=== PATIENT | male | born 2000 | race Caucasian/White ===

== ENCOUNTER 2021-09-28 18:03 | Emergency (ER) | payer OTHER, SELFPAY ==
[2021-09-28 18:23] VITALS: BP 161/79; PULSE 91; RESP 20; TEMP 36.4; O2SAT 100
--- NOTE | 2021-09-28 18:23 | ED.URI ---
HPI - URI/Sore Throat General Chief Complaint: Upper Respiratory Infection Stated Complaint: uri Time Seen by Provider: 09/28/21 18:24 Source: patient and RN notes reviewed Mode of arrival: ambulatory Limitations: no limitations History of Present Illness HPI Narrative: 21-year-old male presents to the [facility] with complaints of upper respiratory symptoms for 2 days. Has taken Tylenol Denies fevers. No chest pain or abdominal pain. Related Data Home Medications Medication Instructions Recorded Confirmed No Home Medications 09/28/21 09/28/21 Allergies Allergy/AdvReac Type Severity Reaction Status Date / Time No Known Allergies Allergy Mild Unverified 11/05/09 22:21 Review of Systems Review of Systems: All systems reviewed & are unremarkable except as noted in HPI and below Constitutional: Constitutional: Reports no additional constitutional complaints, Denies chills and Denies fever(s) Eyes: Eyes: Reports no additional eye complaints ENT: Reports as per HPI and Reports nasal congestion Cardiovascular: Cardiovascular: Reports no additional cardiovascular complaints Respiratory: Respiratory: Reports as per HPI, Reports chest congestion, Reports cough, Denies dyspnea and Denies wheezing Gastrointestinal: Gastrointestinal: Reports no additional gastrointestinal complaints Musculoskeletal: Musculoskeletal: Reports no additional musculoskeletal complaints Integumentary/Breasts: Skin/Breast: Reports system reviewed and no additional complaints, except as docu Neurologic: Reports system reviewed and no additional complaints, except as documented Psychiatric: Psychiatric: Reports no additional psychiatric complaints Allergic/Immunologic: Allergic/Immunologic: Reports no additional allergic/immunologic complaints [facility] Past Medical History Medical History No significant medical problems Surgical History Surgical History (Updated 09/28/21 @ 20:51 by Jessica Miramontes APRN) No history of previous surgery Comments At the time of my signature, I reviewed and agree with the nursing past medical, surgical, social, and family history. There is no relevant family history pertinent to the patient complaint. Exam Const: General: healthy appearing, no acute distress and alert Nutritional Appearance: well nourished Orientation/consciousness: patient oriented x3 Limitations: no limitations HENMT: Head: normal to inspection Ears: external ears normal Eyes: General: appearance normal, both eyes and all related structures Pupils: Equal, round and reactive pupils present Neck: Neck: normal visual inspection, no lymphadenopathy and no meningeal signs Chest: Chest palpation & inspection: normal inspection of the chest Resp: Effort & Inspection: normal respiratory effort and no use of accessory muscles Auscultation: clear to auscultation bilaterally, no crackles, no rales, no rhonchi and no wheezes Cardio: Rate: regular rate Rhythm: regular rhythm Back/Spine/Pelvis: Cervical Spine: normal cervical lordosis Thoracic/Lumbar Spine: thoracic and lumbar spine normal to inspection Skin: General skin exam: normal color Rashes: no rashes Wounds: no wounds Neuro: General: patient oriented x3, moves all extremities, no meningeal signs and no focal motor deficits Cranial nerves: Yes Equal, round and reactive pupils present Speech: normal speech Gait exam (Neuro): Normal gait present Extrem: General: normal to inspection, full ROM and capillary refill normal Psych: Appearance: grossly normal and well kempt Mental Status: mental status grossly normal Affect: normal affect Attitude: cooperative Thought content: Yes Normal thought content present Course Course Emergency Course: Discharge instructions reviewed with patient, as well as provided in writing per nursing staff. The instructions also include specific and strict return/GO TO THE ER as well as
[2021-09-28 21:03] LABS: SARS-CoV-2 RNA PCR Negative
== END 2021-09-28 18:47 | disposition home or self-care (01) ==
PROVIDERS: Emergency Provider Nurse Practitioner
DX: J06.9 Acute upper respiratory infection, unspecified (principal); Z20.822 Contact with and (suspected) exposure to COVID-19
CPT/HCPCS: 87426; 87804; 99213; C9803; G0463; U0003; U0005

== ENCOUNTER 2022-11-07 16:36 | Emergency (ER) | payer OTHER, SELFPAY ==
--- NOTE | ~2022-11-07 | XR_ITS ---
EXAMINATION: XR foot LT 2V DATE: 11/07/2022 19:28 INDICATION: Assess for foreign body TECHNIQUE: Dorsoplantar and lateral views of the left foot were obtained. COMPARISON: None. FINDINGS: Alignment is normal. No fracture. Joint spaces are normal. Soft tissue swelling at the lateral aspect of the forefoot. No evident radiopaque foreign bodies. IMPRESSION: 1. No osseous abnormality or radiopaque foreign body. Reviewed, dictated and finalized at location A.
[2022-11-07 17:17] VITALS: BP 165/90; PULSE 91; RESP 16; TEMP 36.2; O2SAT 99
--- NOTE | 2022-11-07 19:16 | ED.GENADULT ---
HPI - General Adult General Chief complaint: Wound/Laceration <Ulices Gan PA-C - Last Filed: 11/08/22 03:13> Stated complaint: foot laceration <Ulices Gan PA-C - Last Filed: 11/08/22 03:13> Time Seen by Provider: 11/07/22 18:07 <Ulices Gan PA-C - Last Filed: 11/08/22 03:13> Source: patient <GARDENIA Rodriguez Last Filed: 11/08/22 03:13> Mode of arrival: ambulatory <GARDENIA Rodriguez Last Filed: 11/08/22 03:13> Limitations: no limitations <GARDENIA Rodriguez Last Filed: 11/08/22 03:13> History of Present Illness HPI narrative: This is a 22-year-old male who presents to the ED with chief complaint of left foot injury occurring about 2 hours prior to arrival. Patient states that he was chasing after his dog who got outside and accidentally stepped on a broken beer bottle. He states he was barefoot because he rushed outside to get the dog. He reports a lot of bleeding at the time but it is controlled now. Denies any further site of pain or laceration. Denies any further complaint. <Ulices Gan PA-C - Last Filed: 11/08/22 03:13> Related Data Home medications: Home Medications Medication Instructions Recorded Confirmed No Home Medications 09/28/21 09/28/21 <Ulices Gan PA-C - Last Filed: 11/08/22 03:13> Allergies/adverse reactions: Allergies Allergy/AdvReac Type Severity Reaction Status Date / Time No Known Allergies Allergy Mild Verified 11/07/22 18:10 <GARDENIA Rodriguez Last Filed: 11/08/22 03:13> Review of Systems Review of Systems: All systems as dictated in HPI <GARDENIA Rodriguez Last Filed: 11/08/22 03:13> [facility] Past Medical History Medical History: Medical History No significant medical problems <Ulices Gan PA-C - Last Filed: 11/08/22 03:13> Surgical History Surgical History: Surgical History (Updated 09/28/21 @ 20:51 by Jessica Miramontes APRN) No history of previous surgery <Ulices Gan PA-C - Last Filed: 11/08/22 03:13> Exam Narrative: GENERAL: Well-appearing, well-nourished, and in no acute distress. HEAD: Normocephalic, atraumatic. EYES: PERRLA and EOMI. ENT: Nares clear, no rhinorrhea or epistaxis. Mucous membranes moist. Oropharynx without tonsillar hypertrophy exudate or other lesions. NECK: Supple. No adenopathy or masses. CHEST: No respiratory distress. Clear to auscultation. No wheezes rales or rhonchi HEART: Regular rate and rhythm. No murmur heard. Normal peripheral pulses. ABDOMEN: Soft, nontender, nondistended, normal active bowel sounds. MSK: Normal range of motion. No edema. SKIN: There is a 1 cm simple laceration to the plantar aspect of the mid left foot. No active bleeding. NEURO: Alert and oriented x3. No focal deficits. PSYCH: Normal mood and affect. <Ulices Gan PA-C - Last Filed: 11/08/22 03:13> Course WHEEL [employer]FFER/PA Physician Supervision This is a was performed by both a physician and an APC. I performed all aspects of the MDM as documented w/ the following additions: 22-year-old male presenting after stepping on a piece of glass. No laceration repair required. No foreign bodies noted. Patient discharged with return precautions.All questions answered. Patient in agreement w/ disposition. <Tod Martinez MD - Last Filed: 11/10/22 03:44> Vital Signs Vital signs: Vital Signs Temperature 97.1 F L 11/07/22 17:17 Pulse Rate 91 11/07/22 17:17 Respiratory Rate 16 11/07/22 17:17 Blood Pressure 165/90 H 11/07/22 17:17 Pulse Oximetry 99 11/07/22 17:17 Oxygen Delivery Room Air 11/07/22 17:17 Temperature 97.1 F L 11/07/22 17:17 Pulse Rate 91 11/07/22 17:17 Respiratory Rate 16 11/07/22 17:17 Blood Pressure 165/90 H 11/07/22 17:17 Pulse Oximetry 99 11/07/22 17:17 Oxygen Delivery Room Air 11/07/22 17:17 <Ulices Gan PA-C - Last Filed: 10/19
== END 2022-11-07 20:22 | disposition home or self-care (01) ==
PROVIDERS: Emergency Provider Physician Assistant
DX: S91.312A Laceration without foreign body, left foot, initial encounter (principal); W25.XXXA Contact with sharp glass, initial encounter
CPT/HCPCS: 73620; 99283

== ENCOUNTER 2023-07-18 11:46 | Emergency (ER) | payer OTHER, SELFPAY ==
--- NOTE | 2023-07-18 11:49 | ED.SKABFB ---
HPI - Skin/Abscess/Foreign Bdy General Chief complaint: Skin/Abscess/Foreign Body Stated complaint: Insect Bite Time Seen by Provider: 07/18/23 12:14 Source: patient and RN notes reviewed Mode of arrival: ambulatory Limitations: no limitations History of Present Illness HPI narrative: 22-year-old male presents with concern for tick bite to his left thigh. Reports he pulled the tick off of his thigh on Monday, last night he noticed it was red around the bite site. Denies headache, general malaise, fever, body aches, chills, sweats. Denies any other rash. MD complaint: insect bite/sting Related Data Allergies Allergy/AdvReac Type Severity Reaction Status Date / Time No Known Allergies Allergy Mild Verified 07/18/23 11:53 Review of Systems Review of Systems: CONSTITUTIONAL: Denies malaise, chills, sweats, or fever. EYES: Denies redness, or discharge. ENT: Denies rhinorrhea, congestion, swollen lips, swollen tongue CARDIOVASCULAR: Denies chest pain, palpitations, or edema. RESPIRATORY: Denies cough or dyspnea. GASTROINTESTINAL: Denies abdominal pain, nausea, vomiting SKIN: Reports redness around the tick bite site on the left thigh MUSCULOSKELETAL: Denies joint pain or myalgia. NEUROLOGIC: Denies headache. All systems reviewed & are unremarkable except as noted in HPI and below PMFSH Past Medical History Medical History No significant medical problems Surgical History Surgical History (Updated 09/28/21 @ 20:51 by Jessica Miramontes APRN) No history of previous surgery Comments At time of signature, agree with nursing past medical, surgical, social and family history. There is no relevant family history pertinent to the presenting complaint Exam Narrative: GENERAL: Well-appearing, well-nourished, and in no acute distress. HEAD: Normocephalic, atraumatic. EYES: PERRLA, conjunctivae clear, and EOMI. ENT: Mucous membranes moist. Oropharynx without edema, erythema or lesions. NECK: Supple. No lymphadenopathy CHEST: Clear to auscultation. No respiratory distress. HEART: Regular rate and rhythm. SKIN: Warm, dry. Approximately a 7 cm area of erythema surrounding central scabbed bite site on the right upper thigh. No other rash noted NEURO: Alert and oriented x3. PSYCH: Normal mood and affect Course Course Emergency Course: Patient is aware of diagnosis, understands and agrees to treatment plan. Anticipatory guidance given. Patient agrees to follow-up as directed and is aware of reasons to seek care at the emergency department. Portions of this record may have been created with voice recognition software Level of Care: Express Care Visit Vital Signs Vital signs: Reviewed. MDM - Skin/Abscess/Foreign Bdy MDM Narrative Medical decision making narrative: Does not appear at this time to be erythema multiforme, bullous, SJS, TEN; no evidence at this time to suggest RMSF, endocarditis or Lyme disease; patient looks well, nontoxic and is tolerating oral intake; no neurologic signs or symptoms; no headache, photophobia or neck pain; afebrile; appropriate for initial outpatient treatment; discussed the importance of follow-up, patient agrees; question, viral exanthema, contact dermatitis, allergic dermatitis, eczema, urticaria, erythema migrans, cellulitis. No soft palate or uvula edema, no tongue, lip edema or other mucosal involvement, no respiratory compromise, no stridor, no wheezing, no wheezing, no history of syncope, no hypotension, no nausea, vomiting, or diarrhea. Instructed patient to go to nearest ER immediately for any worsening symptoms including but not limited to: fever, spreading rash, pain, sore throat, headache, dizziness, chest pain, trouble breathing, or any symptoms concerning to the patient. Critical Care Time Critical Care Time Critical Care Time: No Discharge Plan Discharge Clinical Impression: Tick bite Patient Disposition: H
[2023-07-18 11:56] VITALS: BP 163/87; PULSE 75; RESP 16; TEMP 36.3; O2SAT 99
== END 2023-07-18 12:27 | disposition home or self-care (01) ==
PROVIDERS: Emergency Provider Nurse Practitioner
DX: S70.362A Insect bite (nonvenomous), left thigh, initial encounter (principal); W57.XXXA Bitten or stung by nonvenomous insect and other nonvenomous arthropods, initial encounter
CPT/HCPCS: 99213; G0463

== ENCOUNTER 2023-07-18 14:15 | Emergency (ER) | payer OTHER, SELFPAY ==
[2023-07-18 14:32] VITALS: BP 150/96; PULSE 81; RESP 17; TEMP 36.5; O2SAT 98
--- NOTE | 2023-07-18 15:24 | ED.GENADULT ---
HPI - General Adult General Chief complaint: Skin/Abscess/Foreign Body <Chel Bob, [employer] ENGINE[employer] - Last Filed: 07/18/23 15:27> Stated complaint: ?REACTION TO ABX <Chel Bob [employer] ENGINEER - Last Filed: 07/18/23 15:27> Time Seen by Provider: 07/18/23 15:24 <Chel Carlson July [employer]INEER - Last Filed: 07/18/23 15:27> Focused HPI: Justen Melo is a 22 y/o male with reports of having a tick bite about 3 days ago and he went to an today because he states the area was getting red / hard and swelling and they started him on Doxycycline and he states that he took one doxy today and then started to have nausea/vomiting 1 hour after the Doxy and has thrown up twice since being here. Denies abdominal pain/ but states he still feels nauseated GENERAL: Well-appearing, well-nourished, and in no acute distress. HEAD: Normocephalic, atraumatic. CHEST: Clear to auscultation. ?No respiratory distress. HEART: Regular rate and rhythm.? NEURO: ?Alert and oriented x3. Patient screened in triage and initial orders placed.? ?Additional care and disposition to be based upon?diagnostic testing and treatment. <Chel Bob, [employer] ENGINEER - Last Filed: 07/18/23 15:27> Source: patient and family ( and mother) <Shelli Justice MD - Last Filed: 07/23/23 21:30> Mode of arrival: ambulatory <Shelli Justice MD - Last Filed: 07/23/23 21:30> Limitations: no limitations <Shelli Justice MD - Last Filed: 07/23/23 21:30> History of Present Illness HPI narrative: Agree with the above with the following: Tick bite had been on the left inner thigh. Estimates it had been in place for possibly 1 day. Works for a [employer]. THe nausea and headache he experienced after taking the dose lasted 2-3 hours and then improved. He had taken the medication and then eaten. No difficulty breathing. No known allergies. <Shelli Justice MD - Last Filed: 07/23/23 21:30> Related Data Allergies/adverse reactions: Allergies Allergy/AdvReac Type Severity Reaction Status Date / Time No Known Allergies Allergy Mild Verified 07/18/23 11:53 <Chel Bob [employer] ENGINEER - Last Filed: 07/18/23 15:27> [facility] Past Medical History Medical History: Medical History No significant medical problems <Chel Bob [employer]TE[employer] ENGINEER - Last Filed: 07/18/23 15:27> Surgical History Surgical History: Surgical History (Updated 09/28/21 @ 20:51 by Jessica Miramontes APRN) No history of previous surgery <Chel Bob [employer] ENGINEER - Last Filed: 07/18/23 15:27> Social History Social History: Social History (Updated 07/23/23 @ 21:25 by Shelli Justice MD) Living arrangements: with family Additional living arrangements comments: Occupation/Education: occupation Additional occupation/education comments: Works for a [employer] <Chel Bob APRN - Last Filed: 07/18/23 15:27> Exam Const: General: healthy appearing, no acute distress and alert; No confusion, diaphoretic or ill appearing <Shelli Justice MD - Last Filed: 07/23/23 21:30> Nutritional Appearance: obese <Shelli Justice MD - Last Filed: 07/23/23 21:30> Orientation/consciousness: patient oriented x3 <Shelli Justice MD - Last Filed: 07/23/23 21:30> Limitations: no limitations <Shelli Justice MD - Last Filed: 07/23/23 21:30> HENMT: Head: normal to inspection <Shelli Justice MD - Last Filed: 07/23/23 21:30> Ears: external ears normal <Shelli Justice MD - Last Filed: 07/23/23 21:30> Face/Nose/Sinus: Normal external nose present <Shelli Justice MD - Last Filed: 07/23/23 21:30> Face and sinus: normal facial exam <Shelli Justice MD - Last Filed: 07/23/23 21:30> Eyes: Direct Ophthalmoscopy: no photophobia <Shelli Justice MD - Last Filed: 07/23/23 21:30> Neck: Neck: normal visual inspection and no meningeal signs <Shelli Justice MD - Last Filed: 07/23/23 21
[2023-07-18] MEDS: ONDANSETRON INJ 4 MG/2 ML VIAL IV PUSH (16:13)
[2023-07-18] MEDS: FAMOTIDINE 20 MG/2 ML VIAL IV PUSH (16:13)
[2023-07-18 16:29] LABS: Basophils Percent Auto 0.2 % (0.2-1.2); Eosinophils Absolute Auto 0.2 K/mm3 (0-0.3); Eosinophils Percent Auto 2.3 % (0-4.4); Hematocrit 43.9 % (42.0-52.0); Hemoglobin 14.7 g/dL (14.0-18.0); Immature Granulocyte Absolute 0.03 K/mm3 (0.00-0.031); Immature Granulocyte Percent A 0.4 % (0-0.5); Immature Platelet Fraction Pct 16.9 % (0.9-11.2); Lymphocytes Absolute Auto 2.73 K/mm3 (0.9-3.2); Lymphocytes Percent Auto 33.5 % (18.3-44.2); Mean Corpuscular HGB Conc 33.5 g/dl (32-36); Mean Corpuscular Hemoglobin 27.4 pg (26-34); Mean Corpuscular Volume 81.9 fl (80-100); Mean Platelet Volume 13.9 fl (7.4-10.4); Monocytes Absolute Auto 0.6 K/mm3 (0.1-0.6); Monocytes Percent Auto 7.4 % (2.6-8.5); Neutrophils Absolute Auto 4.6 K/mm3 (1.3-6.7); Neutrophils Percent Auto 56.2 % (45.5-73.1); Platelet Count Result 152 k/mm3 (150-375); Red Blood Count 5.36 M/mm3 (4.6-6.20); Red Cell Distribution Width 13.6 % (11.5-14.5); White Blood Count 8.2 K/mm3 (4.5-10.0)
[2023-07-18 16:31] LABS: Appearance Urine Clear (Clear); Bilirubin Urine Negative (Negative); Blood Urine Negative (Negative); Color Urine Yellow (Yellow); Glucose Urine UA Negative (Negative); Ketones Urine Trace mg/dL (Negative); Leukocyte Esterase Ur Negative LEU/UL (Negative); Nitrate Urine Negative (Negative); Protein Urine Negative (Negative)
[2023-07-18 16:36] LABS: Add Urine Microscopic? NO; Specific Grav Ur 1.033 (1.001-1.035)
[2023-07-18 16:41] LABS: Alanine Aminotransferase 42 U/L (6-50); Albumin Level 4.4 g/dL (3.5-5.1); Alkaline Phosphatase 68 U/L (38-126); Anion Gap 6 mmol/L (4-12); Aspartate Amino Transferase 31 U/L (17-59); Bilirubin,Total 0.4 mg/dL (0.2-1.3); Blood Urea Nitrogen 17 mg/dL (9-20); Calcium 9.5 mg/dL (8.4-10.2); Carbon Dioxide 25 mmol/L (22-30); Chloride 112 mmol/L (98-107); Estimated CRCL calculation 141 ml/min; Estimated Glomerular Filt Rate > 60; Glucose 107 mg/dL (65-110); Sodium 143 mmol/L (137-145)
--- NOTE | 2023-07-18 17:29 | PC.NURSE ---
Pt reports he removed a tic from left upper thigh 3 days ago, went to UC due to redness surrounding tic bite RX Doxycycline given. Pt states took 1 dose of antibiotic developed N/V. Pt called who told pt he was having an anaphylactic reaction and come to ER. Pt since ate, no further N/V. Bite site with red circular inflamed area noted. Pt denies any c/o pain
== END 2023-07-18 18:56 | disposition home or self-care (01) ==
LOC: ANHED 18:29
PROVIDERS: Nurse Practitioner Family; Emergency Provider Student in an Organized Health Care Education/Training Program
DX: S70.362A Insect bite (nonvenomous), left thigh, initial encounter (principal); R11.2 Nausea with vomiting, unspecified; T36.4X5A Adverse effect of tetracyclines, initial encounter; W57.XXXA Bitten or stung by nonvenomous insect and other nonvenomous arthropods, initial encounter
CPT/HCPCS: 36415; 80053; 81003; 85025; 85055; 96374; 96375; 99284; J2405